=== PATIENT | female | born 1980 | race Caucasian/White ===

== ENCOUNTER 2019-12-20 11:02 | Emergency (ER) | payer OTHER ==
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
--- OUTSIDE RECORDS SUMMARY | 2019-12-20 15:59 | XMS REPORT | Clinical Summary ---
:1980 Author Organization [facility] Address [address] [place] [address] Care Team Providers Name Role Phone Kyle Joyner Primary Care Provider Allergies Active Allergy Reactions Severity Noted Date Comments Hydrocodone Hives, GI Intolerance Medium 07/01/2017 Medications No known medications Active Problems No known active problems Family History Medical History Relation Name Comments Clotting disorder Father Diabetes Father Stroke Father Cancer Mother Lupus Mother Lupus Other Sibling Relation Name Status Comments Father Alive Mother Alive Other Sibling Alive Social History Tobacco Use Types Packs/Day Years Used Date Never Smoker Smokeless Tobacco: Never Used Alcohol Use Drinks/Week oz/Week Comments No Sex Assigned at Date Recorded Not on file Job Start Date Occupation Industry Not on file Not on file Not on file Travel History Travel Start Travel End No recent travel history available. Last Filed Vital Signs Not on file Plan of Treatment Health Maintenance Due Date Last Done Comments CERVICAL CANCER SCREENING 2000 INFLUENZA VACCINE 01/01/2020 Results Not on fileafter 12/19/2018 Advance Directives For more information, please contact: [phone] Type Date Recorded Patient Bilingual Hr Generalist Explanati on Advance Directives, Living Will and Medical Power of Biomedical Scientist
--- OUTSIDE RECORDS SUMMARY | 2019-12-20 15:59 | XMS REPORT | Continuity of Care Document ---
:1980 Author Organization [facility] t Address [address] [place] [place] [address] Care Team Providers Name Role Phone Joyner Kyle Primary Care Physician Tonny BACON Attending Clinician Unavailable Tonny BACON Admitting Clinician Unavailable Problems This patient has no known problems. Allergies, Adverse Reactions, Alerts Allergy Allergy Status Severity Reaction(s) Onset Inactive Treating Comm ents Source Name Type Date Date Clinician Hydrocod Propensi Active Hives, GI Matt ston one ty to Intolerance 07-01 Metho di adverse 00:00: st reaction 00 s to drug Family History Family Member Diagnosis Comments Start Date Stop Date Source Natural father Clotting disorder Matt ston Mandaen Natural father Diabetes [facility] Natural father Stroke [facility] Natural mother Cancer [facility] Natural mother Lupus [facility] Other Lupus [facility] Social History Social Habit Start Date Stop Date Quantity Comments Source Sex Assigned At [facility] Alcohol intake 2017-07-01 2017-07-01 Current [facility] 00:00:00 00:00:00 non-drinker of alcohol (finding) Smoking Status Start Date Stop Date Source Never smoker [facility] Medications This patient has no known medications. Procedures This patient has no known procedures. Plan of Care Planned Activity Planned Date Details Comments Source Future Scheduled 2020-01-01 INFLUENZA VACCINE [place] [facility] Test 00:00:00 [code = INFLUENZA VACCINE] Future Scheduled 2000 Screening for [facility] Test 00:00:00 malignant neoplasm of cervix (procedure) [code = 310139869] Encounters Start End Encounter Admission Attending Care Care Encounter Source Date/Time Date/Time Type Type Clinicians Facility Department ID 2017-08-08 Inpatient C JORDI [facility] [id number] [facility] 09:45:00 [facility] Results This patient has no known results.
[2019-12-20 22:51] VITALS: TEMP 98.7
[2019-12-20 22:52] VITALS: BP 122/87; O2SAT 99
== END 2019-12-20 14:38 | disposition home or self-care (01) ==
LOC: ER 11:02
DX: S06.0X0A Concussion without loss of consciousness, initial encounter (principal); V18.0XXA Pedal cycle driver injured in noncollision transport accident in nontraffic accident, initial encounter; Z88.5 Allergy status to narcotic agent
CPT/HCPCS: 70450; 70486; 72125; 76377; 99283